=== PATIENT | female | born 1985 | race Two or more races ===

== ENCOUNTER 2016-12-29 09:25 | Inpatient (IN) | payer SELFPAY ==
[~2016-12-29] VITALS: Ht 157.5 cm; Wt 60.8 kg
[2016-12-29] MEDS ORDERED: IV RINGERS,LACTATED 1000ML 1,000 ML IV SCH (09:56)
[2016-12-29] MEDS ORDERED: OXYTOCIN 30 UNIT/500 ML PREMIX 500 ML IV PRN ×3 (10:00→11:45)
[2016-12-29] MEDS ORDERED: 0.9 % SODIUM CHLORIDE 10 ML DISP.SYRIN. IV PRN ×2 (10:00→11:45)
[2016-12-29] MEDS ORDERED: LIDOCAINE 1% PF 30 ML VIAL. INJ PRN (10:00)
[2016-12-29] MEDS ORDERED: FENTANYL PF 100 MCG/2 ML VIAL. IV PRN (10:00)
[2016-12-29] MEDS ORDERED: TERBUTALINE 1 MG/ML VIAL. SQ PRN (10:00)
[2016-12-29 10:51] LABS: HEMATOCRIT 36.1 % (36.0-47.0); HEMOGLOBIN 12.2 g/dL (12.0-15.5); RED BLOOD COUNT 3.94 x10^6/uL (3.50-5.40); RED CELL DISTRIBUTION WIDTH 12.8 % (11.5-14.5); WHITE BLOOD COUNT 11.7 x10^3/uL (4.0-11.0)
[2016-12-29 10:52] VITALS: BP 136/88
[2016-12-29] MEDS ORDERED: BUTORPHANOL 2 MG VIAL. ONE (11:16)
--- NOTE | 2016-12-29 11:26 | PDOC1 ---
OB - History Hx of Present Care: Good Care Ultrasounds: Normal mid trimester US Obstetrical Complications: None Medical Complications: None Past Family/Social History * Past Medical, Surgical, Family and Obstetric Histories reviewed from chart. Rubella: Immune RPR/VDRL: Negative GBS Status: Negative HBsAG: Negative OB - Chief Complaint & HPI Date of Admission: Date of Admission: Dec 29, 2016 at 09:25 Chief Complaint/History : 2 Para: 1 EGA: 38 Reason for admission: active labor Admission Nurse Assessment Rev: Yes Problems: OB - Admission Exam Physical Exam Vitals: VS - Last 72 Hours, by Label Date Time Temp Pulse Resp B/P Pulse Ox O2 Delivery O2 Flow Rate FiO2 12/29/16 10:52 98.5 79 20 136/88 98.5 12/29/16 10:10 22 HEENT: Normal Heart: Regular Rate Lungs: Clear Abdomen: Gravid, Non tender, Soft Extremities: Edema Reflexes: Normal Cervical Dilatation: 7cm Effacement: 100% Station: -1 Membranes: Intact Heart Rate: Normal Accelerations: Accelerations Present Decelerations: No decelerations Contractions on Admission: < 5 Minutes Apart Intensity: Firm Text A: 38 wks IUP Active labor P; Admit for labor management. CANDY FONTANEZ Jr, MD Dec 29, 2016 11:26
--- NOTE | 2016-12-29 11:31 | PDOC ---
VAGINAL DELIVERY DATE DATE: 12/29/16 TIME: 11:27 : 2 Para: 2 EGA: 38 VAGINAL DELIVERY: VTX VACCUM ASSISTED: No PLACENTA: Spontaneous 8/9 SEX: Female WEIGHT Weight [2855 gm ] Nuchal Cord: No Amniotic Fluid: Thick Meconium PAIN: Natural EPISIOTOMY: No EBL 300 ml COMPLICATIONS none CONDITION pt. stable. Signs of Intrauterine Infectio: None Shoulder Dystocia: No Problems: CANDY FONTANEZ Jr, MD Dec 29, 2016 11:31
[2016-12-29] MEDS ORDERED: DOCUSATE SODIUM 100 MG CAPSULE PO PRN (11:45)
[2016-12-29] MEDS ORDERED: OXYCODONE/APAP 5/325 TABLET. PO PRN (11:45)
[2016-12-29] MEDS ORDERED: HYDROCORTISONE 1% TOPICAL OINTMENT 30GM TUBE. TP PRN (11:45)
[2016-12-29] MEDS ORDERED: BENZOCAINE 20% TOPICAL AEROSOL SPRAY 57GM CAN. TP PRN (11:45)
[2016-12-29] MEDS ORDERED: IBUPROFEN 800 MG TABLET. PO PRN (11:45)
[2016-12-29] MEDS ORDERED: ACETAMINOPHEN 325 MG TABLET. PO PRN (11:45)
[2016-12-29] MEDS ORDERED: ZOLPIDEM 5 MG TABLET. PO PRN (11:45)
[2016-12-29] MEDS ORDERED: MAGNESIUM HYDROXIDE 2,400 MG/30 ML ORAL.SUSP. PO PRN (11:45)
[2016-12-29] MEDS ORDERED: MMR per PROTOCOL. MC PRN (11:45)
[2016-12-29] MEDS ORDERED: SIMETHICONE 80 MG TAB.CHEW PO PRN (11:45)
[2016-12-29] MEDS ORDERED: MAG HYDROX/ALUMINUM HYD/SIMETH 30 ML ORAL.SUSP PO PRN (11:45)
[2016-12-29] MEDS ORDERED: DIPHENHYDRAMINE HCL 25 MG CAPSULE PO PRN (11:45)
[2016-12-29] MEDS ORDERED: PHENYLEPH/MINERAL OIL/PETROLAT RECTAL OINTMENT 28GM TUBE. RC PRN (11:45)
[2016-12-29] MEDS: IBUPROFEN 800 MG TABLET. PO PRN ×2 (14:06→20:35)
[2016-12-29 19:30] VITALS: BP 114/69
[2016-12-30 00:05] VITALS: BP 103/57
[2016-12-30 04:19] LABS: BASO # 0.1 x10^3/uL (0.0-0.2); BASO % 1 % (0-3); EOS % 1 % (0-3); HEMATOCRIT 34.3 % (36.0-47.0); HEMOGLOBIN 11.7 g/dL (12.0-15.5); LYMPH # 1.3 x10^3/uL (1.0-4.8); LYMPH % 11 % (24-48); MEAN CORPUSCULAR HEMOGLOBIN 31 pg (25-35); MEAN CORPUSCULAR HGB CONC 34 g/dL (31-37); MEAN CORPUSCULAR VOLUME 92 fL (79-100); MONO % 6 % (0-9); NEUT % 81 % (31-73); PLATELET COUNT 119 x10^3/uL (140-400); RED BLOOD COUNT 3.74 x10^6/uL (3.50-5.40); WHITE BLOOD COUNT 11.1 x10^3/uL (4.0-11.0)
[2016-12-30] MEDS: IBUPROFEN 800 MG TABLET. PO PRN (04:50)
[2016-12-30 05:05] VITALS: BP 114/70
[2016-12-30] MEDS ORDERED: FERROUS SULFATE 325 MG TABLET PO SCH (08:00)
[2016-12-30 10:39] VITALS: BP 112/63
--- NOTE | 2016-12-30 11:32 | PDOC ---
OB Progress Note Date of Service 12/30/16 Time of Evaluation 1130 Notes Pt. feeling well. Lochia minimal. Pain controlled. Breast feeding. Lab Laboratory Tests Test 12/29/16 10:30 12/30/16 03:50 White Blood Count 11.7x10^3/uL (4.0-11.0) 11.1x10^3/uL (4.0-11.0) Red Blood Count 3.94x10^6/uL (3.50-5.40) 3.74x10^6/uL (3.50-5.40) Hemoglobin 12.2g/dL (12.0-15.5) 11.7g/dL (12.0-15.5) Hematocrit 36.1% (36.0-47.0) 34.3% (36.0-47.0) Mean Corpuscular Volume 92fL (79-100) 92fL (79-100) Mean Corpuscular Hemoglobin 31pg (25-35) 31pg (25-35) Mean Corpuscular Hemoglobin Concent 34g/dL (31-37) 34g/dL (31-37) Red Cell Distribution Width 12.8% (11.5-14.5) 13.0% (11.5-14.5) Platelet Count 126x10^3/uL (140-400) 119x10^3/uL (140-400) RPR Titer Additional Testing Negative (Non Reactive) Neutrophils (%) (Auto) 81% (31-73) Lymphocytes (%) (Auto) 11% (24-48) Monocytes (%) (Auto) 6% (0-9) Eosinophils (%) (Auto) 1% (0-3) Basophils (%) (Auto) 1% (0-3) Neutrophils # (Auto) 9.0x10^3uL (1.8-7.7) Lymphocytes # (Auto) 1.3x10^3/uL (1.0-4.8) Monocytes # (Auto) 0.7x10^3/uL (0.0-1.1) Eosinophils # (Auto) 0.1x10^3/uL (0.0-0.7) Basophils # (Auto) 0.1x10^3/uL (0.0-0.2) Laboratory Tests Test 12/30/16 03:50 White Blood Count 11.1x10^3/uL (4.0-11.0) Red Blood Count 3.74x10^6/uL (3.50-5.40) Hemoglobin 11.7g/dL (12.0-15.5) Hematocrit 34.3% (36.0-47.0) Mean Corpuscular Volume 92fL (79-100) Mean Corpuscular Hemoglobin 31pg (25-35) Mean Corpuscular Hemoglobin Concent 34g/dL (31-37) Red Cell Distribution Width 13.0% (11.5-14.5) Platelet Count 119x10^3/uL (140-400) Neutrophils (%) (Auto) 81% (31-73) Lymphocytes (%) (Auto) 11% (24-48) Monocytes (%) (Auto) 6% (0-9) Eosinophils (%) (Auto) 1% (0-3) Basophils (%) (Auto) 1% (0-3) Neutrophils # (Auto) 9.0x10^3uL (1.8-7.7) Lymphocytes # (Auto) 1.3x10^3/uL (1.0-4.8) Monocytes # (Auto) 0.7x10^3/uL (0.0-1.1) Eosinophils # (Auto) 0.1x10^3/uL (0.0-0.7) Basophils # (Auto) 0.1x10^3/uL (0.0-0.2) Medications Current Medications Sodium Chloride 3 ml 3 ml QSHIFT PRN IV AFTER MEDS AND BLOOD DRAWS; Start at 10:00; Stop 12/29/16 at 15:01; Status DC Lactated Ringer's (Iv Lactated Ringers) 1,000 ml @ 125 mls/hr Q8H IV Last administered on 12/29/16 10:12; Start 12/29/16 at 09:56; Stop 12/29/16 at 15:01; Status DC Fentanyl Citrate (Fentanyl 2ml Vial) 100 mcg PRN Q30MIN PRN IV Severe pain Last administered on 12/29/16 10:10; Start 12/29/16 at 10:00; Stop 12/29/16 at 15: 01; Status DC Terbutaline Sulfate (Brethine) 0.25 mg 1X PRN PRN SQ SEE COMMENTS; Start at 10:00; Stop 12/29/16 at 15:01; Status DC Lidocaine HCl 30 ml 30 ml 1X PRN PRN INJ SEE COMMENTS; Start 12/29/16 at 10:00; Stop 12/29/16 at 15:01; Status DC Oxytocin/Sodium Chloride 500 ml @ 0 mls/hr CONT PRN IV SEE I/O RECORD Last administered on 12/29/16 10:12; Start 12/29/16 at 10:00; Stop 12/29/16 at 15:01; Status DC Oxytocin/Sodium Chloride (Oxytocin Premix Infusion) 500 ml @ 0 mls/hr CONT PRN PRN IV Post delivery bleeding; Start 12/29/16 at 10:00; Stop 12/29/16 at 15:01; Status DC Ibuprofen (Motrin) 800 mg PRN Q6HRS PRN PO PAIN Last administered on 12/30/16 04:50; Start 12/29/16 at 10:00 Butorphanol Tartrate (Stadol) 2 mg STK-MED ONCE .ROUTE ; Start 12/29/16 at 11:16 ; Stop 12/29/16 at 15:01; Status DC Sodium Chloride 10 ml 10 ml QSHIFT PRN IV AFTER MEDS AND BLOOD DRAWS; Start 12/29/16 at 11:45; Stop 12/29/16 at 15:01; Status DC Oxytocin/Sodium Chloride (Oxytocin Premix Infusion) 500 ml @ 62.5 mls/hr CONT PRN IV SEE I/O RECORD; Start 12/29/16 at 11:45; Stop 12/29/16 at 15:01; Status DC Acetaminophen (Tylenol) 650 mg PRN Q6HRS PRN PO MILD PAIN / TEMP; Start at 11:45 Ibuprofen (Motrin) 800 mg PRN Q8HRS PRN PO INFLAMMATION/PAIN PREVENTION Last administered on 12/30/16 07:47; Start 12/29/16 at 11:45 Docusate Sodium (Colace) 100 mg PRN BID PRN PO CONSTIPATION Last administered on 12/30/16 07:47; Start 12/29/16 at 11:45 Magnesium Hydroxide (Milk Of Magnesia) 2,400 mg PRN DAILY PRN PO CONSTIPATION; Start 12/29/16 at 11:45 Al Hydrox/Mg Hydrox/Simethicone (Mylanta Plus Xs) 30 ml PRN Q4HRS PRN PO HEARTBURN / GAS; Start 12/29/16 at 11:45 Simethicone (Gas-X) 80 mg PRN AFTMEALHC PRN PO GAS / BLOATING; Start 12/29/16 at 11:45 Diphenhydramine HCl (Benadryl) 25 mg PRN Q6HRS PRN PO ITCHING Last administered on 12/30/16 04:50; Start 12/29/16 at 11:45 Benzocaine (Americaine) 1 spray PRN QID PRN TP TOPICAL PAIN Last administered on 12/29/16 14:06; Start 12/29/16 at 11:45 Phenyleph/Shark Oil/Min Oil/Petrol (Preparation H) 1 lachelle PRN QID PRN RC RECTAL PAIN; Start 12/29/16 at 11:45 Hydrocortisone (Cortaid) 1 lachelle PRN QID PRN TP PERINEAL PAIN; Start 12/29/16 at 11:45 Ferrous Sulfate (Feosol) 325 mg BIDWMEALS PO ; Start 12/30/16 at 08:00; Stop 12/30 at 08:00; Status DC Zolpidem Tartrate (Ambien) 5 mg PRN QHS PRN PO INSOMNIA, MAY REPEAT X1; Start 12/29/16 at 11:45 Info (Do NOT chart on this placeholder) 1 ea 1X PRN PRN MC SEE COMMENTS; Start 12/29/16 at 11:45; Stop 12/29/16 at 15:01; Status DC Info (Do NOT chart on this placeholder) 1 ea 1X PRN PRN MC SEE COMMENTS; Start 12/29/16 at 11:45; Stop 12/29/16 at 15:01; Status DC Oxycodone/ Acetaminophen (Percocet 5/325) 2 tab PRN Q4HRS PRN PO MODERATE PAIN , SEVERE PAIN; Start 12/29/16 at 11:45 Exam Abd: soft, non tender, fundus firm Assessment PPD#1 s/p Plan of Care: See new orders (D/c home.) CANDY FONTANEZ Jr, MD Dec 30, 2016 11:32
[2016-12-30] MEDS ORDERED: IBUP-1060 PO (11:34)
--- NOTE | 2016-12-30 11:34 | DISCH ---
DISCHARGE INSTRUCTIONS Condition on Discharge Condition on Discharge: Stable Activity After Discharge Activity Instructions for Disc: Activity as tolerated Lifting Instructions after Dis: No heavy lifting Driving Instructions after Dis: Do not drive today Diet after Discharge Diet after Discharge: Regular Contacting the DRBailey after DC Call your doctor for: Concerns you may have Follow-Up Follow up with: Shari in 6 weeks. CANDY FONTANEZ Jr, MD Dec 30, 2016 11:34
[2016-12-30 12:15] VITALS: BP 116/68
[2016-12-30 16:00] VITALS: BP 112/62
== END 2016-12-30 17:40 | disposition home or self-care (01) | DRG 775 ==
LOC: OBSVTOIN 09:25 → 3 SO LND 09:25 → 3 NORTH 14:22
PROVIDERS: ADMIT Obstetrics & Gynecology; ATTEND Obstetrics & Gynecology
PROC: 10E0XZZ Delivery of Products of Conception, External Approach (ICD-10-PCS; principal; 2016-12-29)
DX: O77.0 Labor and delivery complicated by meconium in amniotic fluid (principal); Z3A.38 38 weeks gestation of pregnancy; Z37.0 Single live birth
CPT/HCPCS: 36415; 85027; 86593; 86850; 86900; 86901; G0378; J2590; J3010; J7120; Q0163

== ENCOUNTER 2018-04-26 08:45 | Inpatient (IN) | payer SELFPAY, MEDICAID ==
[2018-04-26] MEDS ORDERED: LIDOCAINE 1% PF 30 ML VIAL. INJ (09:45)
[2018-04-26] MEDS ORDERED: 0.9 % SODIUM CHLORIDE 10 ML DISP.SYRIN. IV ×2 (09:45→12:45)
[2018-04-26] MEDS ORDERED: OXYTOCIN 30 UNIT/500 ML PREMIX 500 ML IV ×3 (09:45→12:45)
[2018-04-26 10:11] LABS: ADD MAN DIFF? NO
[2018-04-26 10:24] LABS: BASO % 0 % (0-3); EOS % 0 % (0-3); HEMATOCRIT 35.7 % (36.0-47.0); HEMOGLOBIN 12.2 g/dL (12.0-15.5); LYMPH % 13 % (24-48); MEAN CORPUSCULAR HEMOGLOBIN 30 pg (25-35); MEAN CORPUSCULAR HGB CONC 34 g/dL (31-37); MEAN CORPUSCULAR VOLUME 89 fL (79-100); MONO # 0.3 x10^3/uL (0.0-1.1); MONO % 3 % (0-9); NEUT # 6.8 x10^3uL (1.8-7.7); NEUT % 84 % (31-73); PLATELET COUNT 197 x10^3/uL (140-400); RED BLOOD COUNT 4.03 x10^6/uL (3.50-5.40); RED CELL DISTRIBUTION WIDTH 13.4 % (11.5-14.5); WHITE BLOOD COUNT 8.1 x10^3/uL (4.0-11.0)
[2018-04-26] MEDS: IV RINGERS,LACTATED 1000ML 1,000 ML IV (10:35)
[2018-04-26] MEDS: fentaNYL PF VIAL 100 MCG/2 ML VIAL IV (10:59)
[2018-04-26 11:42] LABS: HEPATITIS B SURFACE AG Nonreactive (Nonreactive)
[2018-04-26] MEDS ORDERED: IBUPROFEN 800 MG TABLET. PO (12:45)
[2018-04-26] MEDS ORDERED: ACETAMINOPHEN 325 MG TABLET. PO (12:45)
[2018-04-26] MEDS ORDERED: HYDROCORTISONE 1% TOPICAL OINTMENT 30GM TUBE. TP (12:45)
[2018-04-26] MEDS ORDERED: SIMETHICONE 80 MG TAB.CHEW PO (12:45)
[2018-04-26] MEDS ORDERED: diphenhydrAMINE HCL 25 MG CAPSULE PO (12:45)
[2018-04-26] MEDS ORDERED: PHENYLEPH/MINERAL OIL/PETROLAT RECTAL OINTMENT 28GM TUBE. RC (12:45)
[2018-04-26] MEDS ORDERED: ZOLPIDEM 5 MG TABLET. PO (12:45)
[2018-04-26] MEDS ORDERED: MAG HYDROX/ALUMINUM HYD/SIMETH 30 ML ORAL.SUSP PO (12:45)
[2018-04-26] MEDS ORDERED: MAGNESIUM HYDROXIDE 2,400 MG/30 ML ORAL.SUSP. PO (12:45)
[2018-04-26] MEDS: OXYTOCIN 30 UNIT/500 ML PREMIX 500 ML IV (15:33)
[2018-04-26] MEDS: BENZOCAINE 20% TOPICAL AEROSOL SPRAY 57GM CAN. TP (15:33)
[2018-04-26] MEDS: FERROUS SULFATE 325 MG TABLET. PO (17:00)
[2018-04-26] MEDS: IBUPROFEN 800 MG TABLET. PO (22:22)
[2018-04-27 04:42] LABS: HEMATOCRIT 30.8 % (36.0-47.0)
== END 2018-04-28 11:23 | disposition home or self-care (01) | DRG 775 ==
LOC: 3 SO LND 08:45 → 3 NORTH 16:56
PROVIDERS: Specialist
PROC: 10E0XZZ Delivery of Products of Conception, External Approach (ICD-10-PCS; principal; 2018-04-26)
DX: O77.0 Labor and delivery complicated by meconium in amniotic fluid (principal); Z37.0 Single live birth; Z3A.00 Weeks of gestation of pregnancy not specified
CPT/HCPCS: 36415; 85014; 85025; 86592; 86850; 86900; 86901; 87340; J2590; J3010; J7120